=== PATIENT | female | born 1985 | race Asian ===

== ENCOUNTER 2019-12-17 05:38 | Inpatient (IN) | payer BC ==
[~2019-12-17] VITALS: Ht 167.6 cm; Wt 116.4 kg
[2019-12-17] MEDS ORDERED: NEWBORN KIT ONE (05:49)
[2019-12-17] MEDS ORDERED: METOCLOPRAMIDE 5 MG/ML, 2ML ONE (05:49)
[2019-12-17] MEDS ORDERED: SODIUM CITRATE/CITRIC ACID 30 ML UDC ONE (05:49)
[2019-12-17] MEDS ORDERED: OXYTOCIN 30U/ 0.9% NaCL 500ML 500 ML ONE (05:49)
[2019-12-17] MEDS ORDERED: SODIUM CITRATE/CITRIC ACID 30 ML UDC PO ONE (06:00)
[2019-12-17] MEDS ORDERED: LACTATED RINGERS 1,000 ML IVBOLUS ONE ×2 (06:00→07:30)
[2019-12-17] MEDS: PLEASE ENTER ALLERGIES MC SCH ×3 (06:00→21:25)
[2019-12-17] MEDS ORDERED: METOCLOPRAMIDE 5 MG/ML, 2ML IV ONE (06:00)
[2019-12-17 06:19] LABS: BASOPHILS # (AUTO) 0.03 x10^3/uL (0-0.1); BASOPHILS % (AUTO) 0 % (0-1); EOSINOPHILS % (AUTO) 1 % (1-7); LYMPHOCYTES # (AUTO) 2.05 x10^3/uL (1-3.4); LYMPHOCYTES % (AUTO) 18 % (22-44); MD NO; MEAN CORPUSCULAR HEMOGLOBIN 29.9 pg (27.0-34.8); MEAN CORPUSCULAR HGB CONC 33.6 g/dL (32.4-35.8); MEAN CORPUSCULAR VOLUME 88.9 fL (80-100); MEAN PLATELET VOLUME 8.1 fL (7.4-10.4); MONOCYTES # (AUTO) 0.78 x10^3/uL (0.2-0.8); MONOCYTES % (AUTO) 7 % (2-9); NEUTROPHILS # (AUTO) 8.43 x10^3/uL (1.8-6.8); NEUTROPHILS % (AUTO) 74 % (42-75); PLATELET COUNT 212 x10^3/uL (130-400); RED BLOOD COUNT 4.62 x10^6/uL (3.82-5.3); RED CELL DISTRIBUTION WIDTH 14.1 % (9.6-15.2)
[2019-12-17] MEDS ORDERED: PREN1TAB60 PO (06:50)
[2019-12-17] MEDS: LACTATED RINGERS 1,000 ML IV SCH ×8 (07:13→23:32)
[2019-12-17] MEDS ORDERED: morphine SULFATE/PF 0.5 MG/ML, 10ML ONE (07:15)
[2019-12-17] MEDS ORDERED: PHENYLEPHRINE 10 MG/ML ONE (07:59)
[2019-12-17] MEDS ORDERED: EPHEDRINE 50 MG/ML, 1ML ONE (07:59)
[2019-12-17] MEDS ORDERED: EPINEPHRINE 1 MG/ML, 1ML ONE (07:59)
[2019-12-17] MEDS ORDERED: OXYTOCIN 10 UNITS/ML, 1ML ONE (07:59)
[2019-12-17] MEDS ORDERED: CEFAZOLIN 1,000 MG ONE (07:59)
[2019-12-17] MEDS ORDERED: ONDANSETRON 2MG/ML, 2ML ONE (07:59)
[2019-12-17] MEDS ORDERED: WATER-INJECTION,STERILE 10 ML IV ONE (07:59)
[2019-12-17] MEDS ORDERED: ONDANSETRON 2MG/ML, 2ML IV PRN (08:00)
[2019-12-17] MEDS ORDERED: IBUPROFEN 600 MG TABLET PO PRN (08:00)
[2019-12-17] MEDS ORDERED: MISOPROSTOL 200 MCG TABLET PR PRN (08:00)
[2019-12-17] MEDS ORDERED: ACETAMINOPHEN 325 MG TABLET PO PRN (08:00)
[2019-12-17] MEDS ORDERED: OXYcodone/APAP 5/325MG TABLET PO PRN (08:00)
[2019-12-17] MEDS ORDERED: MORPHINE SULFATE 4 MG/ML, 1ML IVPush PRN (08:00)
[2019-12-17] MEDS: PRENATAL VIT/IRON/FA 1 EACH TABLET PO SCH (09:00)
[2019-12-17] MEDS ORDERED: KETOROLAC 30 MG/1 ML ONE (09:31)
[2019-12-17] MEDS: KETOROLAC 30 MG/1 ML IV SCH ×3 (09:33→21:34)
[2019-12-17] MEDS: OXYTOCIN 30U/ 0.9% NaCL 500ML 500 ML IV SCH ×2 (09:59→17:32)
[2019-12-17 10:45] VITALS: BP 114/72
[2019-12-17 14:00] VITALS: BP 112/70
[2019-12-17 16:00] VITALS: BP 112/72
[2019-12-17 16:52] LABS: MD SCAN
[2019-12-17 16:57] LABS: BASOPHILS # (AUTO) 0.04 x10^3/uL (0-0.1); BASOPHILS % (AUTO) 0 % (0-1); EOSINOPHILS # (AUTO) 0.03 x10^3/uL (0-0.4); EOSINOPHILS % (AUTO) 0 % (1-7); LYMPHOCYTES # (AUTO) 1.52 x10^3/uL (1-3.4); LYMPHOCYTES % (AUTO) 9 % (22-44); MEAN CORPUSCULAR HEMOGLOBIN 28.7 pg (27.0-34.8); MEAN CORPUSCULAR HGB CONC 31.9 g/dL (32.4-35.8); MEAN CORPUSCULAR VOLUME 89.9 fL (80-100); MEAN PLATELET VOLUME 7.7 fL (7.4-10.4); MONOCYTES # (AUTO) 0.89 x10^3/uL (0.2-0.8); MONOCYTES % (AUTO) 6 % (2-9); NEUTROPHILS # (AUTO) 13.91 x10^3/uL (1.8-6.8); NEUTROPHILS % (AUTO) 85 % (42-75); PLATELET COUNT 187 x10^3/uL (130-400); RED BLOOD COUNT 3.93 x10^6/uL (3.82-5.3); RED CELL DISTRIBUTION WIDTH 13.8 % (9.6-15.2)
[2019-12-17 19:45] VITALS: BP 102/62
[2019-12-17] MEDS: DOCUSATE 100 MG CAPSULE PO PRN (21:34)
[2019-12-17] MEDS: OXYcodone/APAP 5/325MG TABLET PO PRN (21:35)
[2019-12-17] MEDS: SIMETHICONE 80 MG CHEW TAB PO PRN (21:35)
[2019-12-18 01:25] VITALS: BP 110/77
[2019-12-18] MEDS: OXYTOCIN 30U/ 0.9% NaCL 500ML 500 ML IV SCH ×3 (03:32→23:32)
[2019-12-18] MEDS: LACTATED RINGERS 1,000 ML IV SCH ×3 (03:32→23:32)
[2019-12-18] MEDS: KETOROLAC 30 MG/1 ML IV SCH ×4 (03:54→21:38)
[2019-12-18] MEDS: SIMETHICONE 80 MG CHEW TAB PO PRN ×2 (03:54→21:38)
[2019-12-18 03:58] VITALS: BP 112/75
[2019-12-18 07:04] VITALS: BP 123/78
[2019-12-18] MEDS ORDERED: FERROUS SULFATE 325 MG TABLET PO SCH (09:00)
[2019-12-18] MEDS: DOCUSATE 100 MG CAPSULE PO PRN ×2 (09:12→21:38)
[2019-12-18] MEDS: PRENATAL VIT/IRON/FA 1 EACH TABLET PO SCH (09:12)
[2019-12-18 20:00] VITALS: BP 133/88
[2019-12-19] MEDS: KETOROLAC 30 MG/1 ML IV SCH (03:30)
[2019-12-19 07:50] VITALS: BP 126/88
[2019-12-19] MEDS ORDERED: IBUP-1222 PO (08:41)
[2019-12-19] MEDS ORDERED: OXYC-302 PO (08:41)
[2019-12-19] MEDS: PRENATAL VIT/IRON/FA 1 EACH TABLET PO SCH (09:08)
[2019-12-19] MEDS: DOCUSATE 100 MG CAPSULE PO PRN (09:08)
[2019-12-19] MEDS: SIMETHICONE 80 MG CHEW TAB PO PRN (09:08)
[2019-12-19] MEDS: OXYcodone/APAP 5/325MG TABLET PO PRN (09:10)
[2019-12-19] MEDS: LACTATED RINGERS 1,000 ML IV SCH (09:32)
[2019-12-19] MEDS: OXYTOCIN 30U/ 0.9% NaCL 500ML 500 ML IV SCH (09:32)
== END 2019-12-19 11:28 | disposition home or self-care (01) | DRG 787 ==
LOC: LDIP 05:38 → 2NW 10:33
PROVIDERS: ADMIT Obstetrics & Gynecology; ATTEND Obstetrics & Gynecology
PROC: 10D00Z1 Extraction of Products of Conception, Low, Open Approach (ICD-10-PCS; principal; 2019-12-17)
DX: O34.211 Maternal care for low transverse scar from previous cesarean delivery (principal); D62 Acute posthemorrhagic anemia; O99.02 Anemia complicating childbirth; Z88.2 Allergy status to sulfonamides; Z37.0 Single live birth; Z3A.39 39 weeks gestation of pregnancy; Z86.32 Personal history of gestational diabetes; Z88.8 Allergy status to other drugs, medicaments and biological substances; F32.9 Major depressive disorder, single episode, unspecified; F41.9 Anxiety disorder, unspecified; Z20.828 Contact with and (suspected) exposure to other viral communicable diseases
CPT/HCPCS: 36415; 85025; 86592; 86850; 86900; 87635; G0378; J0171; J0690; J1885; J2274; J2405; J2370; J2590; J2765; J7120